=== PATIENT | female | born 2000 | race Hispanic/Latino ===

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

== ENCOUNTER 2025-02-08 07:31 | Emergency (ER) | payer BC, MEDICAID ==
[~2025-02-08] VITALS: Ht 152.4 cm; Wt 54.4 kg
--- NOTE | 2025-02-08 07:55 | ERN ---
General Chief Complaint: Nausea,Vomiting,Diarrhea Stated Complaint: N/V/D, ABD PAIN Time Seen by MD: 07:37 Source: patient History of Present Illness Initial Comments Patient is a 24-year-old female coming in complaining of nauseousness vomiting and abdominal discomfort. Per patient this has been ongoing for seven days. She attributes this discomfort to taking a new medication for control. She states that soon as she started taking it she started having the discomfort. No fever no chills. Allergies: Coded Allergies: No Known Drug Allergies (Verified Allergy, Unknown, 05/05/20) Home Meds No Active Prescriptions or Reported Meds Past Medical History Past Medical History: No Pertinent History Past Surgical History: None Female( History) LMP: Feb 05, 2025 ROS Dictation CONSTITUTIONAL: No chills, no fever, no weakness, no diaphoresis, no malaise. HEAD/FACE: No signs of trauma. EENT: No eye pain, no blurred vision, no tearing, no double vision, no ear pa in, no ear discharge, no nose pain, no nasal congestion, no throat pain, no throat swelling, no mouth pain. RESPIRATORY: No cough, no orthopnea, no SOB, no stridor, no wheezing. CARDIOVASCULAR: No chest pain, no edema, no palpitations, no syncope. GASTROINTESTINAL/ABDOMINAL: No abdominal pain, no constipation, no diarrhea, no nausea, no vomiting. GENITOURINARY: No abnormal discharge, no dysuria, no frequent urination, no hematuria. No complaints of pain in the genitals. MUSCULOSKELETAL: No back pain, no gout, no joint pain, no joint swelling, no muscle pain, no muscle stiffness, no neck pain. INTEGUMENTARY: No change in color, no change in hair/nails, no dryness, no lesion, no lumps, no rash. NEUROLOGICAL/PSYCH: No anxiety, not depressed, no emotional problem, no headache, no numbness, no pre-existing deficit, no history of seizures, no tremors, no weakness. HEMATOLOGIC/LYMPHATIC: Not anemic, no history of blood clots, no apparent bleeding, no bruising, glands not swollen. All Systems Negative, Except as Noted. Physical Exam Physical Exam Dictation VITAL SIGNS: Reviewed. GENERAL APPEARANCE: Alert, oriented x3, no acute distress, obese. HEAD AND FACE: Non-traumatic. EYES: PERRL, pink conjunctivas, eyelid no trauma, anterior chamber clear. EARS: Pinnas intact and no signs of trauma or erythema. Ear canals clear and no discharge. TMs no erythema. NOSE: No discharge, no bleeding. OROPHARYNX: Mouth normal, teeth no caries, tongue pink. Pharynx clear, no erythema. Tonsils no exudates, no abscesses noted. Mucous membrane moist. NECK: Supple, non-tender, no thyromegaly, no masses, no JVD, no bruits. BREAST: Deferred. CHEST: No tenderness, no crepitus, no paradoxical movement, no retractions. LUNGS: Clear, well-ventilated, symmetric, no rales, no wheezing, no rhonchi, no stridor, good breath sounds bilaterally. HEART: Regular rate, regular rhythm, no murmur, no gallops. VASCULAR: No peripheral edema. ABDOMEN: Soft, positive bowel sounds, nondistended, no guarding, nontender, no rebound, no masses no hepatomegaly, no splenomegaly, no Nelson's sign, no hernias. RECTAL: Deferred. GENITAL: Deferred. NEUROLOGICAL: Normal speech, gross motor function intact, gross sensory function intact. MUSCULOSKELETAL: Neck nontender, full range of motion, back nontender, full range of motion. EXTREMITIES: Nontender, full range of motion. SKIN: Color pink, dry, no turgor, no rash, no lacerations, no abrasions, no contusions. LYMPHATICS: Deferred. Results Laboratory and Microbiology Lab and Micro Result Laboratory Tests Test 02/08/25 07:50 02/08/25 07:53 Urine Color YELLOW (YELLOW) Urine Appearance CLOUDY (CLEAR) H Urine pH 5.5 (5.0-8.0) Urine Specific [place] 1.031 (1.001-1.031) Urine Protein 10 mg/dL (NEGATIVE) H Urine Glucose (UA) NEGATIVE mg/dL (NEGATIVE) Urine Ketones 10 mg/dL (NEGATIVE) H Urine Occult Blood LARGE (NEGATIVE) H Urine Nitrate NEGATIVE (NEGATIVE) Urine Bilirubin NEGATIVE mg/dL (NEGATIVE) Urine Urobilinogen 0.2 mg/dL (0.2-1.0) Urine Leukocyte Esterase 25 Michelle/uL (NEGATIVE) H Urine RBC 0-1 /HPF (0-1) Urine WBC 2-5 /HPF (0-1) H Urine Squamous Epithelial Cells MANY /HPF (0-2) Urine Bacteria RARE /HPF (None Seen) Urine HCG, Qualitative NEGATIVE (NEGATIVE) White Blood Count 10.8 K/uL (4.8-10.8) Red Blood Count 5.12 MIL/uL (4.00-5.50) Hemoglobin 14.9 g/dL (12.0-16.0) Hematocrit 44.4 % (36-48) Mean Corpuscular Volume 86.7 fL (79-99) Mean Corpuscular Hemoglobin 29.1 pg (27.0-33.0) Mean Corpuscular Hemoglobin Concent 33.6 g/dL (32.0-36.0) Red Cell Distribution Width 12.4 % (11.0-15.5) Platelet Count 182 K/uL (130-400) Mean Platelet Volume 10.0 fL (7.5-10.5) Immature Granulocyte % (Auto) 0.3 % (0-1) Neutrophils (%) (Auto) 91.8 % (40.0-77.0) H Lymphocytes (%) (Auto) 3.6 % (21.0-51.0) L Monocytes (%) (Auto) 3.8 % (3.0-13.0) Eosinophils (%) (Auto) 0.4 % (0.0-8.0) Basophils (%) (Auto) 0.1 % (0.0-5.0) Neutrophils # (Auto) 9.9 K/uL (1.8-7.7) H Lymphocytes # (Auto) 0.4 K/uL (1.0-4.8) L Monocytes # (Auto) 0.4 K/uL (0.1-1.0) Eosinophils # (Auto) 0.04 K/uL (0.00-0.70) Basophils # (Auto) 0.01 K/uL (0.00-0.20) Absolute Immature Granulocyte (auto 0.03 K/uL (0-1) Nucleated Red Blood Cells 0.0 % (0.0-0.19) White Cell Morphology Comment See comments Sodium Level 136 mmol/L (136-145) Potassium Level 4.0 mmol/L (3.5-5.1) Chloride Level 100 mmol/L (101-111) L Carbon Dioxide Level 24 mmol/L (21-32) Blood Urea Nitrogen 8 mg/dL (7-18) Creatinine 0.8 mg/dL (0.5-1.0) Glomerular Filtration Rate Calc 106 mL/min (>90) Random Glucose 106 mg/dL (70-105) H Total Calcium 9.0 mg/dL (8.5-10.1) Total Bilirubin 1.2 mg/dL (0.2-1.0) H Aspartate Amino Transf (AST/SGOT) 65 U/L (10-37) H Alanine Aminotransferase (ALT/SGPT) 81 U/L (12-78) H Alkaline Phosphatase 89 U/L (50-136) Total Protein 7.8 g/dL (6.0-8.3) Albumin 4.4 g/dL (3.5-5.0) Lipase 50 U/L (16-77) Human Chorionic Gonadotropin, Quant 0 mIU/mL (0-5) Labs Reviewed?: Yes EKG/XRAY/US/CT/MRI Ultrasound Comment Ultrasound right-upper quadrant - NAD MDM MDM: Differential diagnosis: Gastroenteritis, viral gastroenteritis, fatty liver Rationale: Tests considered and ordered secondary to shared decision making include: Previous outside records reviewed: Old ER visits. Risk of complication and/or morbidity or mortality of patient management: None Medications-Per medication reconciliation Need for hospitalization: Patient does not meet criteria for hospitalization. Need for emergency major/minor surgery: No Patient is a 24-year-old female coming in complaining of diarrhea nausea and vomiting. Laboratory workup within normal limits mildly elevated liver enzymes ultrasound did not confirm acute findings. Patient will be discharged in stable condition with a diagnosis of viral gastroenteritis. ED Course Orders Procedure Category Date Status Time Cbc With Differential LAB 02/08/25 Complete 07:39 Comprehensive LAB 02/08/25 Complete Metabolic Panel 07:39 Hcg,Quantitative LAB 02/08/25 Complete 07:39 ,Urine Test LAB 02/08/25 Complete 07:39 Urinalysis Profile LAB 02/08/25 Complete 07:39 0.9%Nacl 1000ml (Ns PHA 02/08/25 Complete 1000ml) 08:00 Ondansetron 4mg Inj PHA 02/08/25 Complete (Zofran 4mg Inj) 08:00 Pantoprazole 40mg Inj PHA 02/08/25 Complete (Protonix 40mg Inj 08:00 Lipase LAB 02/08/25 Complete 07:39 Us Abdominal Ruq\Ltd US 02/08/25 Taken 09:47 Current Medications Medications (Trade) Dose Ordered Sig/Millie Route PRN Reason Start Time Stop Time Status Last Admin Dose Admin Ondansetron HCl (zoFRAN 4MG INJ) 4 mg ONCE ONCE IVP 02/08/25 08:00 02/08/25 08:01 DC 02/08/25 08:09 Pantoprazole Sodium (PROTonix 40MG INJ) 40 mg ONCE ONCE IVP 02/08/25 08:00 02/08/25 08:01 DC 02/08/25 08:09 Sodium Chloride 1,000 ml @ 0 mls/hr ONCE ONCE IV 02/08/25 08:00 02/08/25 08:01 DC 02/08/25 08:09 Vital Signs Date Time Temp Pulse Resp B/P (MAP) Pulse Ox O2 Delivery O2 Flow Rate FiO2 02/08/25 09:46 98.8 91 18 122/72 98 Room Air* 0 21 02/08/25 08:45 98.8 97 18 109/61 98 Room Air* 0 21 02/08/25 07:37 98.6 115 18 106/70 98 Room Air* 0 21 02/08/25 07:32 98.6 115 18 106/70 98 Room Air 0 DX & DISP Disposition: Discharge Departure Impression: Primary Impression: Viral gastroenteritis Condition: Stable Scripts Pantoprazole Sodium (Protonix) 40 Mg Ectab 1 TAB PO DAILY for 30 Days, #30 TAB 0 Refills Prov: JOSSELYN CULLEN MD 02/08/25 Lactobacillus Acidophilus (Acidophilus Probiotic) 500 Million Cell Capsule 1 CAP PO DAILY for 7 Days, #7 CAP 0 Refills Prov: JOSSELYN CULLEN MD 02/08/25 Additional Instructions: FOLLOW-UP WITH PRIMARY CARE PROVIDER IN 1 TO 2 DAYS. TAKE MEDICATIONS DIRECTED HERE IN THE EMERGENCY ROOM. OKAY TO CONTINUE HOME MEDICATIONS UNLESS OTHERWISE DISCUSSED DURING YOUR VISIT IN THE EMERGENCY ROOM TODAY. RETURN TO YOUR NEAREST EMERGENCY ROOM IF SYMPTOMS WORSEN OR IF THERE IS NO IMPROVEMENT. CALL 911 IF YOU NEED IMMEDIATE ASSISTANCE. TAKE TYLENOL [id number] NEEDED AND IF NO CONTRAINDICATIONS ARE PRESENT. INCREASE ORAL HYDRATION. A WOUND CULTURE OR URINE CULTURE WAS ORDERED HERE IN THE EMERGENCY ROOM DEPARTMENT PLEASE FOLLOW-UP WITH PRIMARY CARE PROVIDER AND ADVISE THEM TO GET REPORTS FROM OUR FACILITY. IF YOU HAD ANY LAURENT WRAP/SPLINTS THAT WERE APPLIED HERE, PLEASE DO NOT REMOVE THEM UNTIL YOU SEE YOUR PRIMARY CARE OR SPECIALTY. Referrals: Referrals: SELF,REFERRAL (PCP) TRINIDAD MCDONALD MD Time of Disposition: 10:33 JOSSELYN CULLEN MD Feb 08, 2025 07:55
[2025-02-08] MEDS: 0.9%NACL 1000ML 1,000 ML IV ONE (08:09)
[2025-02-08 08:12] LABS: IMMATURE GRANULOCYTE ABSOLUTE 0.03 K/uL (0-1); NUCLEATED RED BLOOD CELLS 0.0 % (0.0-0.19); PLATELET COUNT (AUTO) 182 K/uL (130-400); RED BLOOD CELL COUNT(AUTO) 5.12 MIL/uL (4.00-5.50); RED CELL DISTRIBUTION WIDTH 12.4 % (11.0-15.5); WHITE BLOOD COUNT (AUTO) 10.8 K/uL (4.8-10.8)
[2025-02-08 08:34] LABS: CREATININE 0.8 mg/dL (0.5-1.0); GLOMERULAR FILTR. RATE CALC 106.0 mL/min (>90); GLUCOSE,RANDOM 106.0 mg/dL (70-105); SODIUM SERUM 136.0 mmol/L (136-145); UREA NITROGEN, BLOOD 8.0 mg/dL (7-18)
[2025-02-08 08:38] LABS: APPEARANCE,URINE CLOUDY (CLEAR); GLUCOSE, URINE (UA) NEGATIVE (NEGATIVE); HCG,QUALITATIVE URINE NEGATIVE (NEGATIVE); LEUKOCYTE ESTERASE ,URINE 25 Leu/uL (NEGATIVE); NITRATE,URINE NEGATIVE (NEGATIVE); OCCULT BLOOD,URINE LARGE (NEGATIVE)
[2025-02-08 08:43] LABS: ADD UA MICROSCOPIC YES
[2025-02-08 08:44] LABS: SQUAMOUS EPITHELIAL CELL,UR MANY /HPF (0-2)
[2025-02-08 08:45] LABS: ASPARTATE AMINOTRANSFERASE 65.0 U/L (10-37); HCG,QUANTITATIVE 0.0 mIU/mL (0-5); TOTAL PROTEIN, SERUM 7.8 g/dL (6.0-8.3)
[2025-02-08 10:29] VITALS: BP 117/68; PULSE 87; RESP 18; TEMP 98.8; O2SAT 98
[2025-02-08] MEDS ORDERED: PANT40TA55 PO (10:34)
[2025-02-08] MEDS ORDERED: LACT-356 PO (10:34)
[2025-02-08] MEDS: MAG/ALUM/SIMETH 30 ML UDCUP PO ONE (10:58)
[2025-02-08] MEDS: LIDOCAINE HCL 2% VISCOUS 15 ML UDCUP PO ONE (10:59)
--- NOTE | 2025-02-08 11:24 | HMCIMG ---
EXAM: US Abdomen, Right Upper Quadrant. CLINICAL HISTORY: hx of n/v TECHNIQUE: Right upper quadrant sonography performed with image documentation. COMPARISON: None provided. FINDINGS: LIVER: Within normal limits in size and echogenicity. No mass. GALLBLADDER: The gallbladder appears normal. No gallbladder wall thickening seen. No gallstones are evident. COMMON BILE DUCT: Within normal limits in size. PANCREAS: The distal pancreas is obscured by bowel gas. The visualized portion of the pancreas appears within normal limits. RIGHT KIDNEY: Unremarkable. Normal renal contours. No renal mass or calculus. No hydronephrosis. IMPRESSION: No sonographic abnormality appreciated within the right upper quadrant. /[place]
== END 2025-02-08 11:02 | disposition home or self-care (01) ==
LOC: EDH 07:31
DX: A08.4 Viral intestinal infection, unspecified (principal); R10.2 Pelvic and perineal pain
CPT/HCPCS: 99285; 96374; 76705; 96361; 96375; 80053; 84702; 83690; 85025; 81001; 81025; 36415; J7030; J2405; J2470

== ENCOUNTER 2025-02-08 22:18 | Emergency (ER) | payer MEDICAID ==
[~2025-02-08] VITALS: Ht 152.4 cm; Wt 53.5 kg
[~2025-02-08 22:18] MED LIST: LACT-356 PO; PANT40TA55 PO
[2025-02-09 00:21] LABS: CREATININE 0.7 mg/dL (0.5-1.0); GLOMERULAR FILTR. RATE CALC 125.0 mL/min (>90); GLUCOSE,RANDOM 90.0 mg/dL (70-105); SODIUM SERUM 136.0 mmol/L (136-145); UREA NITROGEN, BLOOD 4.0 mg/dL (7-18)
[2025-02-09 00:26] LABS: ASPARTATE AMINOTRANSFERASE 41.0 U/L (10-37); TOTAL PROTEIN, SERUM 6.7 g/dL (6.0-8.3)
[2025-02-09 00:28] LABS: IMMATURE GRANULOCYTE ABSOLUTE 0.01 K/uL (0-1); NUCLEATED RED BLOOD CELLS 0.0 % (0.0-0.19); PLATELET COUNT (AUTO) 146 K/uL (130-400); RED BLOOD CELL COUNT(AUTO) 4.52 MIL/uL (4.00-5.50); RED CELL DISTRIBUTION WIDTH 12.7 % (11.0-15.5); WHITE BLOOD COUNT (AUTO) 5.3 K/uL (4.8-10.8)
--- NOTE | 2025-02-09 02:49 | HMCIMG ---
EXAM: CT Abdomen and Pelvis without IV contrast. CLINICAL HISTORY: Pain in the right upper quadrant. TECHNIQUE: Thin collimated axial CT images of the abdomen and pelvis were obtained, with sagittal and coronal reformatted images also submitted. A CT scan is done according to ALARA (As Low As Reasonably Achievable). CONTRAST: None. COMPARISON: None. FINDINGS: Unremarkable visualized lung parenchyma. There is no focal abnormality appreciated within the liver, gallbladder, pancreas, adrenals, or kidneys. Borderline splenomegaly. Nondilated fluid-filled small and large bowel loops with questionable septal mucosal thickening, concerning mild acute enterocolitis. Bowel loops are normal in caliber without evidence of obstruction or ileus. The appendix is unremarkable. There is no abnormality within the urinary bladder. Unremarkable uterus. There is a 3.0 x 2.4 cm right ovarian cyst. No lymphadenopathy. No free fluid. No pneumoperitoneum. No gross abnormality in the abdominal vessels. There is no acute osseous abnormality. IMPRESSIONS: Questionable mild acute enterocolitis. Right ovarian cyst. Borderline splenomegaly. /[place]
--- NOTE | 2025-02-09 03:02 | ERN ---
General Chief Complaint: Abdominal Pain Stated Complaint: C/O RUQ PAIN RADIATING TO BACK, FEVER Time Seen by MD: 22:25 Time Seen by Midlevel: 22:25 Source: patient History of Present Illness Initial Comments The patient is a 24-year-old female presenting to the emergency department for evaluation of right upper quadrant abdominal pain that radiates to her back. The patient was seen in the emergency department earlier today diagnosed with viral gastroenteritis. At that time she had lab work and a right upper quadrant ultrasound which was negative. Today she reports with increased pain. She was advised to report to the ER if she developed increased pain Allergies: Coded Allergies: No Known Drug Allergies (Verified Allergy, Unknown, 05/05/20) Home Meds Active Scripts Pantoprazole Sodium (Protonix) 40 Mg Ectab, 1 TAB PO DAILY for 30 Days, #30 TAB 0 Refills Prov:JOSSELYN CULLEN MD 02/08/25 Lactobacillus Acidophilus (Acidophilus Probiotic) 500 Million Cell Capsule, 1 CAP PO DAILY for 7 Days, #7 CAP 0 Refills Prov:JOSSELYN CULLEN MD 02/08/25 Past Medical History Past Medical History: No Pertinent History Past Surgical History: None Female( History) LMP: Jan 21, 2025 ROS Dictation CONSTITUTIONAL: Negative except for HPI HEAD/FACE: Negative except for HPI EENT: Negative except for HPI RESPIRATORY: Negative except for HPI GASTROINTESTINAL/ABDOMINAL: Negative except for HPI GENITOURINARY: Negative except for HPI MUSCULOSKELETAL: Negative except for HPI INTEGUMENTARY: Negative except for HPI NEUROLOGICAL/PSYCH: Negative except for HPI HEMATOLOGIC/LYMPHATIC: Negative except for HPI All Systems Negative, Except as noted above. 13 point review of systems assessed and all negative except for above. Physical Exam Physical Exam Dictation Vital Signs reviewed General Appearance: Alert, oriented x 3, no acute distress, well developed, nourished. Head and Face: non-traumatic. Eyes: PERRL, pink conjunctivas, eyelid no trauma, anterior chamber with arcus senilis. Ears: Pinnas intact and no signs of trauma or erythema ear canals clear and no discharge TM no erythema Nose: No discharge, no bleeding. Oropharynx: Mouth normal, tongue pink, pharynx clear,no erythema, tonsils no exudates, no abscesses noted, mucous membrane moist Neck: Supple, non-tender, no thyromegaly, no masses, no JVD, no bruits Breast:Deferred Chest:No tenderness, no crepitus, no paradoxical movement, no retractions Lungs:Clear, well-ventilated, symmetric, no rales, no wheezing, no rhonchi, no stridor, good breath sounds bilaterally Heart: Regular rate, regular rhythm, no murmur, no gallops Vascular: no peripheral edema, Abdomen: Soft, positive bowel sounds, nondistended, no guarding, nontender, no rebound, no masses no hepatomegaly, no splenomegaly, no Nelson's sign, no hernias. Rectal: Deferred Genital: Deferred Neurological: Normal speech, motor function intact, sensory function intact Musculoskeletal: Neck nontender, full range of motion, back nontender, full range of motion, Extremities: nontender, full range of motion Skin: Color pink, dry, no turgor, no rash, no lacerations, no abrasions, no contusions. Lymphatic: Deferred Results Laboratory and Microbiology Lab and Micro Result Laboratory Tests Test 02/09/25 00:00 White Blood Count 5.3 K/uL (4.8-10.8) # Red Blood Count 4.52 MIL/uL (4.00-5.50) Hemoglobin 13.5 g/dL (12.0-16.0) Hematocrit 39.3 % (36-48) Mean Corpuscular Volume 86.9 fL (79-99) Mean Corpuscular Hemoglobin 29.9 pg (27.0-33.0) Mean Corpuscular Hemoglobin Concent 34.4 g/dL (32.0-36.0) Red Cell Distribution Width 12.7 % (11.0-15.5) Platelet Count 146 K/uL (130-400) Mean Platelet Volume 10.1 fL (7.5-10.5) Immature Granulocyte % (Auto) 0.2 % (0-1) Neutrophils (%) (Auto) 82.2 % (40.0-77.0) H Lymphocytes (%) (Auto) 10.0 % (21.0-51.0) L Monocytes (%) (Auto) 7.0 % (3.0-13.0) Eosinophils (%) (Auto) 0.4 % (0.0-8.0) Basophils (%) (Auto) 0.2 % (0.0-5.0) Neutrophils # (Auto) 4.4 K/uL (1.8-7.7) Lymphocytes # (Auto) 0.5 K/uL (1.0-4.8) L Monocytes # (Auto) 0.4 K/uL (0.1-1.0) Eosinophils # (Auto) 0.02 K/uL (0.00-0.70) Basophils # (Auto) 0.01 K/uL (0.00-0.20) Absolute Immature Granulocyte (auto 0.01 K/uL (0-1) Nucleated Red Blood Cells 0.0 % (0.0-0.19) Sodium Level 136 mmol/L (136-145) Potassium Level 3.5 mmol/L (3.5-5.1) Chloride Level 102 mmol/L (101-111) Carbon Dioxide Level 25 mmol/L (21-32) Blood Urea Nitrogen 4 mg/dL (7-18) L Creatinine 0.7 mg/dL (0.5-1.0) Glomerular Filtration Rate Calc 125 mL/min (>90) Random Glucose 90 mg/dL (70-105) Total Calcium 8.5 mg/dL (8.5-10.1) Total Bilirubin 1.3 mg/dL (0.2-1.0) H Aspartate Amino Transf (AST/SGOT) 41 U/L (10-37) H Alanine Aminotransferase (ALT/SGPT) 62 U/L (12-78) # Alkaline Phosphatase 83 U/L (50-136) Total Protein 6.7 g/dL (6.0-8.3) Albumin 3.7 g/dL (3.5-5.0) Lipase 30 U/L (16-77) Serum Test, Qualitative NEGATIVE (NEGATIVE) Labs Reviewed?: Yes MDM MDM: Differential diagnosis: Gastroenteritis, acute cholecystitis, pancreatitis There are no social concerns with this patient. Prescription drug management Prescriptions will include: None Medical management and examination interpretation discussions were had by me with other qualified healthcare professionals as indicated for the patient's care. ED Course Orders Procedure Category Date Status Time Cbc With Differential LAB 02/08/25 Complete 23:51 Comprehensive LAB 02/08/25 Complete Metabolic Panel 23:51 Lipase LAB 02/08/25 Complete 23:51 Ct Abdomen/Pelvis W/O CT 02/08/25 Resulted Contrast 23:51 Ketorolac PHA 02/09/25 Complete Tromethamine 30mg/Ml 00:00 Testing, LAB 02/09/25 Complete Serum Hcg 00:03 Current Medications Medications (Trade) Dose Ordered Sig/Millie Route PRN Reason Start Time Stop Time Status Last Admin Dose Admin Ketorolac Tromethamine (toRADol) 30 mg ONCE ONCE IM 02/09/25 00:00 02/09/25 00:01 DC 02/09/25 00:16 Vital Signs Date Time Temp Pulse Resp B/P (MAP) Pulse Ox O2 Delivery O2 Flow Rate FiO2 02/09/25 00:45 80 18 115/71 97 Room Air* 0 21 02/08/25 23:30 99.0 105 20 120/60 97 Room Air* 0 21 02/08/25 22:20 99.0 108 20 123/66 96 Room Air DX & DISP Disposition: Discharge Departure Impression: Primary Impression: Viral gastroenteritis Condition: Stable Additional Instructions: Your blood work today is stable. Your CT scan shows findings consistent with gastroenteritis. Your CT scan also showed a right ovarian cyst. Please follow up with your primary care doctor in 2-3 days for repeat evaluation. Referrals: SELF,REFERRAL (PCP) Time of Disposition: 02:58 I have reviewed the case, and I agree with, Diagnosis and Plan I performed the substantive portion of the visit. I have reviewed and personally made and approve the management plan that is documented in the note by myself or the CELESTE. I acknowledge for responsibility for the patient's management plan. TRINIDAD MCFADDEN Feb 09, 2025 03:02
[2025-02-09 03:08] VITALS: BP 124/68; PULSE 82; RESP 16; TEMP 98.8; O2SAT 99
== END 2025-02-09 03:10 | disposition home or self-care (01) ==
LOC: EDH 22:18
DX: A08.4 Viral intestinal infection, unspecified (principal); Z79.899 Other long term (current) drug therapy
CPT/HCPCS: 99285 ×2; 80053 ×2; 84703; 84702; 83690 ×2; 85025 ×2; 82948; 81001; 81025; 36415 ×2; 74176; 76705; 96374; 96361; 96375; 96372; J7030; J2405; J2470; J1885